=== PATIENT | female | born 2000 | race Caucasian/White ===

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

== ENCOUNTER 2019-02-28 18:42 | Emergency (ER) | payer BC ==
[2019-02-28] MEDS ORDERED: Sodium Chloride 0.9% 10 ML Syringe FLUSH PRN (19:13)
[2019-02-28] MEDS ORDERED: Ketorolac 30 MG/ML SDV IVPUSH ONE (19:13)
--- NOTE | 2019-02-28 20:12 | EDM.PDOC ---
ED HPI GENERAL MEDICAL PROBLEM - General Chief Complaint: Chest Pain Stated Complaint: CHEST PAIN, FRONT AND BACK Time Seen by Provider: 02/28/19 19:30 Source of Information: Reports: Patient, Family History Limitations: Reports: No Limitations - History of Present Illness INITIAL COMMENTS - FREE TEXT/NARRATIVE: Dee comes into [facility] ED with a relapse of anterior chest pains since 11 am today. Pain is sharp, painful to breathe, and radiates into the back. She had similar sxs 2 days ago that lasted for an hour. There is no fever, chills, sweats, palpitations, dizziness, nausea, or GI upset. She is taking antibx for a cold from her PCP earlier this week. She has tried no analgesic meds. - Related Data Allergies Allergy/AdvReac Type Severity Reaction Status Date / Time No Known Allergies Allergy Verified 09/14/17 07:02 Home Meds: Home Meds Acetaminophen/HYDROcodone [[place] 325-5 MG] 1 tab PO Q4H PRN #30 tablet 06/10/15 [Rx] Ondansetron [Zofran ODT] 4 mg PO Q6H PRN #20 tab.dis 08/09/17 [Rx] Pantoprazole Sodium [Protonix] 20 mg PO DAILY #30 tablet. 08/09/17 [Rx] Acetaminophen 1,000 mg PO Q6H PRN 09/10/17 [History] Levonorgestrel-Ethin Estradiol [Falmina-28 Tablet] 1 each PO DAILY 09/10/17 [ History] metroNIDAZOLE [Flagyl] 500 mg PO BID 09/10/17 [History] Pantoprazole Sodium [Protonix] 40 mg PO DAILY #30 tablet. 09/14/17 [Rx] Past Medical History HEENT History: Reports: Epistaxis Cardiovascular History: Reports: Syncope Respiratory History: Reports: None Gastrointestinal History: Reports: Chronic Constipation, Gastritis, Other (See Below) Other Gastrointestinal History: CHRONIC RUQ PAIN Genitourinary History: Reports: None BED PLACEMENT COORDINATOR History: Reports: None Musculoskeletal History: Reports: Neck Pain, Chronic Neurological History: Reports: Vertigo Psychiatric History: Reports: ADHD, Depression Endocrine/Metabolic History: Reports: None Hematologic History: Reports: None Immunologic History: Reports: None Oncologic (Cancer) History: Reports: None Dermatologic History: Reports: None - Past Surgical History Head Surgeries/Procedures: Reports: None HEENT Surgical History: Reports: Oral Surgery Other HEENT Surgeries/Procedures: WISDOM TEETH GI Surgical History: Reports: Appendectomy Social & Family History - Caffeine Use Caffeine Use: Reports: None - Living Situation & Occupation Living situation: Reports: Single Occupation: Student ED ROS GENERAL - Review of Systems Review Of Systems: See Below Constitutional: Reports: No Symptoms HEENT: Reports: No Symptoms Respiratory: Reports: Other (pain with breathing anteriorly) Cardiovascular: Reports: Chest Pain Endocrine: Reports: No Symptoms GI/Abdominal: Reports: No Symptoms : Reports: No Symptoms Musculoskeletal: Reports: No Symptoms Skin: Reports: No Symptoms Neurological: Reports: No Symptoms Psychiatric: Reports: No Symptoms Hematologic/Lymphatic: Reports: No Symptoms Immunologic: Reports: No Symptoms ED EXAM, GENERAL - Physical Exam Exam: See Below Exam Limited By: No Limitations General Appearance: Alert, WD/WN, Anxious, Thin Eye Exam: Bilateral Eye: EOMI, Normal Inspection, PERRL Ears: Normal External Exam Nose: Normal Inspection Throat/Mouth: Normal Inspection, Normal Oropharynx Head: Normocephalic Neck: Normal Inspection, Supple, Full Range of Motion Respiratory/Chest: No Respiratory Distress, Lungs Clear, Normal Breath Sounds, No Accessory Muscle Use, Chest Non-Tender Cardiovascular: Normal Peripheral Pulses, Regular Rate, Rhythm, No Murmur GI/Abdominal: Normal Bowel Sounds, Soft, Non-Tender, No Organomegaly, No Distention, No Mass (Female) Exam: Deferred Rectal (Female) Exam: Deferred Back Exam: Normal Inspection, Full Range of Motion Extremities: Normal Inspection Neurological: Alert, Oriented, CN II-XII Intact, Normal Cognition, Normal Gait, No Motor/Sensory Deficits Psychiatric: Normal Affect, Anxious Skin Exam: Warm, Dry, Intact, Normal Color, No Rash Lymphatic: No Adenopathy Course - Vital Signs Text/Narrative:: Following assessment at the ED, I inserted IV access and administered Toradol 30 mgi IV with resolution of pain sxs in about 30 minutes. A chest x ray was normal for age, EKG noted NSR, CBC and CMP baseline, ddimer and troponin I levels satisfactory for age. Last Recorded V/S: Last Vital Signs Temp 36.7 C 02/28/19 18:45 Pulse 88 02/28/19 18:45 Resp 20 02/28/19 18:45 BP 136/78 02/28/19 18:45 Pulse Ox 100 02/28/19 18:45 - Orders/Labs/Meds Orders: Active Orders 24 hr Category Date Time Status Chest 1V Frontal [CR] Stat Exams 02/28/19 19:10 Taken Sodium Chloride 0.9% [Saline Flush] Med 02/28/19 19:13 Active 10 ml FLUSH ASDIRECTED PRN Peripheral IV Insertion Adult [OM.PC] Routine Oth 02/28/19 19:13 Ordered EKG 12 Lead [EK] Routine Ther 02/28/19 19:10 Ordered Medication Orders Sodium Chloride (Saline Flush) 10 ml FLUSH ASDIRECTED PRN PRN Reason: Keep Vein Open Last Admin: 02/28/19 19:23 Dose: 10 ml Labs: Laboratory Tests 02/28/19 02/28/19 02/28/19 Range/Units 19:20 19:20 19:20 WBC 10.0 (4.5-12.0) X10-3/uL RBC 4.66 (3.23-5.20) x10(6)uL Hgb 14.2 (11.5-15.5) g/dL Hct 40.0 (30.0-51.3) % MCV 85.7 (80-96) fL MCH 30.5 (27.7-33.6) pg MCHC 35.6 H (32.2-35.4) g/dL RDW 12.3 (11.5-15.5) % Plt Count 206 (125-369) X10(3)uL MPV 7.8 (7.4-10.4) fL Neut % (Auto) 68.7 (46-82) % Lymph % (Auto) 23.2 (13-37) % [place] % (Auto) 5.8 (4-12) % Eos % (Auto) 2 (1.0-5.0) % Baso % (Auto) 1 (0-2) % Neut # (Auto) 6.9 (1.6-8.3) # Lymph # (Auto) 2.3 (0.6-5.0) # [place] # (Auto) 0.6 (0.0-1.3) # Eos # (Auto) 0.2 (0.0-0.8) # Baso # (Auto) 0.0 (0.0-0.2) # D-Dimer, Quantitative 0.28 (0.0-0.59) mg/LFEU Sodium 141 (135-145) mmol/L Potassium 3.7 (3.5-5.3) mmol/L Chloride 105 (100-110) mmol/L Carbon Dioxide 24 (21-32) mmol/L BUN 16 (7-18) mg/dL Creatinine 0.8 (0.55-1.02) mg/dL Est Cr Clr Drug Dosing TNP Estimated GFR (MDRD) > 60 (>60) BUN/Creatinine Ratio 20.0 (9-20) Glucose 120 H (80-116) mg/dL Calcium 9.4 (8.6-10.2) mg/dL Total Bilirubin 0.6 (0.1-1.3) mg/dL AST 17 (5-25) IU/L ALT 16 (12-36) U/L Alkaline Phosphatase 75 (56-112) IU/L Troponin I (<0.017-0.056) ng/mL Total Protein 7.6 (6.0-8.0) g/dL Albumin 4.2 (3.5-5.2) g/dL Globulin 3.4 g/dL Albumin/Globulin Ratio 1.2 06/18/19 Range/Units 19:20 WBC (4.5-12.0) X10-3/uL RBC (3.23-5.20) x10(6)uL Hgb (11.5-15.5) g/dL Hct (30.0-51.3) % MCV (80-96) fL MCH (27.7-33.6) pg MCHC (32.2-35.4) g/dL RDW (11.5-15.5) % Plt Count (125-369) X10(3)uL MPV (7.4-10.4) fL Neut % (Auto) (46-82) % Lymph % (Auto) (13-37) % [place] % (Auto) (4-12) % Eos % (Auto) (1.0-5.0) % Baso % (Auto) (0-2) % Neut # (Auto) (1.6-8.3) # Lymph # (Auto) (0.6-5.0) # [place] # (Auto) (0.0-1.3) # Eos # (Auto) (0.0-0.8) # Baso # (Auto) (0.0-0.2) # D-Dimer, Quantitative (0.0-0.59) mg/LFEU Sodium (135-145) mmol/L Potassium (3.5-5.3) mmol/L Chloride (100-110) mmol/L Carbon Dioxide (21-32) mmol/L BUN (7-18) mg/dL Creatinine (0.55-1.02) mg/dL Est Cr Clr Drug Dosing Estimated GFR (MDRD) (>60) BUN/Creatinine Ratio (9-20) Glucose (80-116) mg/dL Calcium (8.6-10.2) mg/dL Total Bilirubin (0.1-1.3) mg/dL AST (5-25) IU/L ALT (12-36) U/L Alkaline Phosphatase (56-112) IU/L Troponin I < 0.017 L (<0.017-0.056) ng/mL Total Protein (6.0-8.0) g/dL Albumin (3.5-5.2) g/dL Globulin g/dL Albumin/Globulin Ratio Meds: Medications Generic Name Dose Route Start Last Admin Trade Name Freq PRN Reason Stop Dose Admin Sodium Chloride 10 ml 02/28/19 19:13 02/28/19 19:23 Saline Flush FLUSH 10 ml ASDIRECTED PRN Administration Keep Vein Open Discontinued Medications Generic Name Dose Route Start Last Admin Trade Name Freq PRN Reason Stop Dose Admin Ketorolac Tromethamine 30 mg 02/28/19 19:13 02/28/19 19:23 Toradol IVPUSH 02/28/19 19:14 30 mg ONETIME ONE Administration Departure - Departure Time of Disposition: 20:16 Disposition: Home, Self-Care 01 Condition: Good Clinical Impression: Atypical chest pain Referrals: Tracy Starr PA [Primary Care Provider] - Forms: ED Department Discharge - Problem List & Annotations (1) Atypical chest pain SNOMED Code(s): 460188321 Code(s): R07.89 - OTHER CHEST PAIN Status: Acute Current Visit: Yes Annotation/Comment:: I suggested sxs cares, NSAIDs for any relapse of pain, and follow up with PCP if needed. - Problem List Review Problem List Initiated/Reviewed/Updated: Yes - My Orders Last 24 Hours: My Active Orders 02/28/19 19:10 Chest 1V Frontal [CR] Stat EKG 12 Lead [EK] Routine 02/28/19 19:13 Sodium Chloride 0.9% [Saline Flush] 10 ml FLUSH ASDIRECTED PRN Peripheral IV Insertion Adult [OM.PC] Routine - Assessment/Plan Last 24 Hours: My Active Orders 02/28/19 19:10 Chest 1V Frontal [CR] Stat EKG 12 Lead [EK] Routine 02/28/19 19:13 Sodium Chloride 0.9% [Saline Flush] 10 ml FLUSH ASDIRECTED PRN Peripheral IV Insertion Adult [OM.PC] Routine Plan: Follow up with PCP if needed.
[2019-02-28 21:28] VITALS: BP 120/77
== END 2019-02-28 20:31 | disposition home or self-care (01) ==
LOC: FB.ED 18:42
DX: R07.89 Other chest pain (principal); Z79.899 Other long term (current) drug therapy; Z98.890 Other specified postprocedural states; Z90.49 Acquired absence of other specified parts of digestive tract
CPT/HCPCS: 36415; 71045; 80053; 84484; 85025; 85379; 93005; 96374; 99284-25; J1885